=== PATIENT | male | born 1960 | race Caucasian/White ===

== ENCOUNTER 2018-04-12 06:38 | Inpatient (IN) | payer OTHER ==
[~2018-04-12] VITALS: Ht 177.8 cm; Wt 61.4 kg
[2018-04-12 07:54] LABS: BASOPHIL (%) 0.3 % (0-1); BASOPHIL COUNT 0.1 K/uL (0-0.1); EOSINOPHIL (%) 0.2 % (0-5); HEMATOCRIT 43.5 % (38.0-50.0); HEMOGLOBIN 15.5 G/DL (12.5-16.6); IMMATURE GRANULOCYTE (%) 0.5 % (0.0-0.7); LYMPHOCYTE COUNT 0.5 K/uL (1.0-2.8); MCH 33.5 PG (29.0-34.0); MCHC 35.6 G/DL (30.0-36.0); MONOCYTE (%) 7.9 % (3-12); MONOCYTE COUNT 1.2 K/uL (0-0.8); NEUTROPHIL (%) 88.1 % (45-76); NEUTROPHIL COUNT 13.6 K/uL (1.8-6.4); PLATELET COUNT 139 K/uL (156-360); RBC DIS.WIDTH-CV 13.2 % (11.8-14.6); RBC DIS.WIDTH-SD 45.5 % (39-53); RED BLOOD COUNT 4.63 M/uL (4.00-5.50); WHITE BLOOD COUNT 15.4 K/uL (4.1-10.2)
[2018-04-12 08:04] LABS: PTT 27.1 SEC (25-37)
[2018-04-12 08:15] LABS: ALBUMIN 4.5 G/DL (3.2-4.8); CHLORIDE 100 MEQ/L (99-109); POTASSIUM 4.1 MEQ/L (3.7-5.4); SODIUM 138 MEQ/L (136-147); TOTAL BILIRUBIN 1.2 MG/DL (0.0-1.0)
[2018-04-12 08:21] LABS: ALKALINE PHOSPHATASE 82 IU/L (3-129); ALT (GPT) 27 IU/L (3-49); AST (GOT) 44 IU/L (2-34); CREATININE 1.1 MG/DL (0.6-1.3); GFR ESTIMATE (CALCULATED) > 59 mL/min/ (58.99-99999); GLUCOSE 138 mg/dL (70-99); TOTAL PROTEIN 7.7 G/DL (6.4-8.3); UREA NITROGEN (BUN) 9 mg/dL (9-23)
[2018-04-12 08:25] LABS: TROP-I INTERPRETATION NEGATIVE; TROPONIN-I 0.19 ng/mL (0.0-0.30)
[2018-04-12] MEDS ORDERED: FLOVENT 11120 INHALA IH (10:15)
[2018-04-12] MEDS ORDERED: AFRIN,GENASAL D15 ML BOTH NARES (10:15)
[2018-04-12 10:55] LABS: LIPASE 2224 U/L (1.0-51.0)
[2018-04-12 12:28] LABS: MAGNESIUM 2.1 mg/dL (1.3-2.7)
[2018-04-12 13:28] LABS: TRIGLYCERIDES 48 MG/DL (Normal: <150)
[2018-04-12 14:25] VITALS: BP 174/91
[2018-04-12 16:32] LABS: TROP-I INTERPRETATION INDETERMINATE; TROPONIN-I 0.33 ng/mL (0.0-0.30)
[2018-04-12 17:41] LABS: INTER. NORMALIZED RATIO 1.1
[2018-04-12 17:44] LABS: PTT 33.5 SEC (25-37)
[2018-04-12 19:16] VITALS: BP 147/88
[2018-04-12 22:55] LABS: TROP-I INTERPRETATION NEGATIVE
[2018-04-12 23:15] VITALS: BP 150/86
[2018-04-13] VITALS (11 sets, daily range): BP systolic 73–180; BP diastolic 44–493
[2018-04-13 06:04] LABS: ALBUMIN 3.6 G/DL (3.2-4.8); ALKALINE PHOSPHATASE 53 IU/L (3-129); ALT (GPT) 19 IU/L (3-49); AST (GOT) 31 IU/L (2-34); CHLORIDE 105 MEQ/L (99-109); CREATININE 0.9 MG/DL (0.6-1.3); GFR ESTIMATE (CALCULATED) > 59 mL/min/ (58.99-99999); GLUCOSE 130 mg/dL (70-99); POTASSIUM 3.5 MEQ/L (3.7-5.4); SODIUM 139 MEQ/L (136-147); UREA NITROGEN (BUN) 10 mg/dL (9-23)
[2018-04-13 06:06] LABS: LIPASE 2220 U/L (1.0-51.0)
[2018-04-13 06:18] LABS: TOTAL BILIRUBIN 0.9 MG/DL (0.0-1.0); TOTAL PROTEIN 5.7 G/DL (6.4-8.3)
[2018-04-13 19:47] LABS: BASOPHIL (%) 0 % (0-1); EOSINOPHIL (%) 0.1 % (0-5); HEMATOCRIT 24.9 % (38.0-50.0); IMMATURE GRANULOCYTE (%) 0.7 % (0.0-0.7); LYMPHOCYTE (%) 6.4 % (15-42); LYMPHOCYTE COUNT 0.6 K/uL (1.0-2.8); MCH 32.9 PG (29.0-34.0); MCHC 33.3 G/DL (30.0-36.0); MONOCYTE (%) 9.8 % (3-12); NEUTROPHIL COUNT 8.1 K/uL (1.8-6.4); NRBC (%) 0.2 /100 WBC (0-0); RBC DIS.WIDTH-CV 13.5 % (11.8-14.6); RBC DIS.WIDTH-SD 48.5 % (39-53); WHITE BLOOD COUNT 9.8 K/uL (4.1-10.2)
[2018-04-13 19:48] LABS: HEMOGLOBIN 8.3 G/DL (12.5-16.6); MCV 98.8 FL (86-99); RED BLOOD COUNT 2.52 M/uL (4.00-5.50)
[2018-04-13 20:06] LABS: MAGNESIUM 1.4 mg/dl (1.3-2.7); PHOSPHORUS 1.9 mg/dL (2.5-4.9)
[2018-04-13 20:15] LABS: ABS NEUTROPHIL COUNT 9.3; ANISOCYTOSIS 1+; BAND NEUTROPHILS 1.7 % (0-8.0); EOSINOPHIL ABS CT 0; LYMPHOCYTES 4.4 % (15.0-45.0); MACROCYTES 1+; MONOCYTES 0.9 % (0-9.0); PLAT.SUFFICIENCY DECREASED
[2018-04-13 20:16] LABS: PLATELET COUNT 71 K/uL (156-360)
[2018-04-13 20:17] LABS: COMMENTS - BLOOD GASES C; DEVICE VENT; FI02 50 %; MECHANICAL RATE 20 resp/min; MODE AC; PCO2 35 mm Hg (35-45); PEEP 5 CM/H20; PO2 158 mm Hg (80-100); SITE LB; TIDAL VOLUME 450 ML; TOTAL RESP RATE 20 resp/min; pH 7.51 (7.35-7.45)
[2018-04-13 20:18] LABS: BASE EXCESS 4.6 mEq/L (-3 to +3); BICARBONATE 27.9 mEq/L (22-26); CARBOXY HGB 1.2 % (0-5); O2 SATURATION (CALCULATED) 96.8 % (95-99)
[2018-04-13 20:19] LABS: TROP-I INTERPRETATION NEGATIVE; TROPONIN-I 0.19 ng/mL (0.0-0.30)
[2018-04-13 20:24] LABS: ALBUMIN 3.1 G/DL (3.2-4.8); ALKALINE PHOSPHATASE 35 IU/L (3-129); ALT (GPT) 16 IU/L (3-49); AST (GOT) 30 IU/L (2-34); CHLORIDE 108 MEQ/L (99-109); CREATININE 0.8 MG/DL (0.6-1.3); GFR ESTIMATE (CALCULATED) > 59 mL/min/ (58.99-99999); GLUCOSE 98 mg/dL (70-99); HIGH-SENS C-REACTIVE PROTEIN 2.28 MG/DL (0.02-0.20); POTASSIUM 3.1 MEQ/L (3.7-5.4); SODIUM 139 MEQ/L (136-147); THYROTROPIN (TSH) 2.8 MIU/L (0.4-5.5); TOTAL BILIRUBIN 0.9 MG/DL (0.0-1.0); TOTAL PROTEIN 4.9 G/DL (6.4-8.3); UREA NITROGEN (BUN) 12 mg/dL (9-23)
[2018-04-14] VITALS (26 sets, daily range): BP systolic 91–153; BP diastolic 47–614
[2018-04-14 02:44] LABS: APPEARANCE CLEAR ((CLEAR)); BILIRUBIN NEGATIVE; BLOOD SMALL; COLOR YELLOW ((YELLOW)); GLUCOSE (STRIP) NEGATIVE; KETONES NEGATIVE; LEUKOCYTES NEGATIVE; NITRITE NEGATIVE; PROTEIN (STRIP) NEGATIVE; SPECIFIC GRAVITY 1.012 (1.000-1.030); UROBILINOGEN 0.2 MG/DL (0.2-1.0)
[2018-04-14 02:49] LABS: BACTERIA NONE SEEN /HPF; EPITHELIAL CELLS NONE SEEN /HPF; MUCUS TRACE /LPF; RED BLOOD CELLS 0-5 /HPF (0-5); WHITE BLOOD CELLS 0-5 /HPF (0-5)
[2018-04-14 06:52] LABS: ALBUMIN 2.7 G/DL (3.2-4.8); ALKALINE PHOSPHATASE 33 IU/L (3-129); ALT (GPT) 13 IU/L (3-49); AST (GOT) 22 IU/L (2-34); CHLORIDE 117 MEQ/L (99-109); CREATININE 0.7 MG/DL (0.6-1.3); GFR ESTIMATE (CALCULATED) > 59 mL/min/ (58.99-99999); POTASSIUM 2.8 MEQ/L (3.7-5.4); SODIUM 145 MEQ/L (136-147); TOTAL PROTEIN 4.3 G/DL (6.4-8.3); UREA NITROGEN (BUN) 8 mg/dL (9-23)
[2018-04-14 06:54] LABS: GLUCOSE 148 mg/dL (70-99); TOTAL BILIRUBIN 0.7 MG/DL (0.0-1.0)
[2018-04-14 06:55] LABS: BASOPHIL (%) 0.1 % (0-1); EOSINOPHIL (%) 0 % (0-5); HEMATOCRIT 20.4 % (38.0-50.0); HEMOGLOBIN 6.8 G/DL (12.5-16.6); IMMATURE GRANULOCYTE (%) 0.4 % (0.0-0.7); LYMPHOCYTE (%) 2.2 % (15-42); LYMPHOCYTE COUNT 0.2 K/uL (1.0-2.8); MCH 33.5 PG (29.0-34.0); MCHC 33.3 G/DL (30.0-36.0); MCV 100.5 FL (86-99); MONOCYTE (%) 4.8 % (3-12); MONOCYTE COUNT 0.5 K/uL (0-0.8); NEUTROPHIL (%) 92.5 % (45-76); NEUTROPHIL COUNT 8.8 K/uL (1.8-6.4); PLATELET COUNT 60 K/uL (156-360); RBC DIS.WIDTH-CV 13.5 % (11.8-14.6); RBC DIS.WIDTH-SD 50.1 % (39-53); RED BLOOD COUNT 2.03 M/uL (4.00-5.50); WHITE BLOOD COUNT 9.6 K/uL (4.1-10.2)
[2018-04-14 19:30] LABS: BASOPHIL (%) 0.1 % (0-1); EOSINOPHIL (%) 0 % (0-5); HEMATOCRIT 25.8 % (38.0-50.0); HEMOGLOBIN 8.6 G/DL (12.5-16.6); IMMATURE GRANULOCYTE (%) 0.4 % (0.0-0.7); LYMPHOCYTE COUNT 0.2 K/uL (1.0-2.8); MCH 31.6 PG (29.0-34.0); MCHC 33.3 G/DL (30.0-36.0); MCV 94.9 FL (86-99); MONOCYTE COUNT 0.5 K/uL (0-0.8); NEUTROPHIL (%) 93.5 % (45-76); NEUTROPHIL COUNT 10.6 K/uL (1.8-6.4); PLATELET COUNT 63 K/uL (156-360); RBC DIS.WIDTH-CV 16.4 % (11.8-14.6); RBC DIS.WIDTH-SD 57.5 % (39-53); RED BLOOD COUNT 2.72 M/uL (4.00-5.50); WHITE BLOOD COUNT 11.4 K/uL (4.1-10.2)
[2018-04-14 19:41] LABS: ALBUMIN 2.9 G/DL (3.2-4.8); ALKALINE PHOSPHATASE 38 IU/L (3-129); ALT (GPT) 15 IU/L (3-49); AST (GOT) 21 IU/L (2-34); CHLORIDE 113 MEQ/L (99-109); CREATININE 0.7 MG/DL (0.6-1.3); GFR ESTIMATE (CALCULATED) > 59 mL/min/ (58.99-99999); GLUCOSE 129 mg/dL (70-99); SODIUM 142 MEQ/L (136-147); TOTAL BILIRUBIN 0.7 MG/DL (0.0-1.0); TOTAL PROTEIN 4.7 G/DL (6.4-8.3); UREA NITROGEN (BUN) 7 mg/dL (9-23)
[2018-04-14 19:43] LABS: POTASSIUM 3.6 MEQ/L (3.7-5.4)
[2018-04-14 19:52] LABS: MAGNESIUM 1.7 mg/dl (1.3-2.7); PHOSPHORUS 2.7 mg/dL (2.5-4.9)
[2018-04-15] VITALS (16 sets, daily range): BP systolic 96–171; BP diastolic 65–861
[2018-04-15 05:40] LABS: BASOPHIL (%) 0.1 % (0-1); EOSINOPHIL (%) 0 % (0-5); HEMATOCRIT 25.8 % (38.0-50.0); HEMOGLOBIN 8.6 G/DL (12.5-16.6); IMMATURE GRANULOCYTE (%) 0.5 % (0.0-0.7); LYMPHOCYTE (%) 3.1 % (15-42); LYMPHOCYTE COUNT 0.3 K/uL (1.0-2.8); MCH 31.7 PG (29.0-34.0); MCHC 33.3 G/DL (30.0-36.0); MCV 95.2 FL (86-99); MONOCYTE (%) 5.8 % (3-12); MONOCYTE COUNT 0.6 K/uL (0-0.8); NEUTROPHIL (%) 90.5 % (45-76); RBC DIS.WIDTH-SD 56.1 % (39-53); RED BLOOD COUNT 2.71 M/uL (4.00-5.50)
[2018-04-15 05:58] LABS: ALBUMIN 2.8 G/DL (3.2-4.8); ALKALINE PHOSPHATASE 40 IU/L (3-129); ALT (GPT) 15 IU/L (3-49); AST (GOT) 22 IU/L (2-34); CHLORIDE 112 MEQ/L (99-109); CREATININE 0.8 MG/DL (0.6-1.3); GFR ESTIMATE (CALCULATED) > 59 mL/min/ (58.99-99999); GLUCOSE 166 mg/dL (70-99); LIPASE 141 U/L (1.0-51.0); POTASSIUM 3.5 MEQ/L (3.7-5.4); SODIUM 140 MEQ/L (136-147); TOTAL BILIRUBIN 0.6 MG/DL (0.0-1.0); TOTAL PROTEIN 4.8 G/DL (6.4-8.3); UREA NITROGEN (BUN) 7 mg/dL (9-23)
[2018-04-15 06:14] LABS: IMM.PLATELET FRACTION 14.7 (1-7); PLAT.SUFFICIENCY DECREASED
[2018-04-15 06:16] LABS: PLATELET COUNT 37 K/uL (156-360)
[2018-04-15 09:04] LABS: COMMENTS - BLOOD GASES A+C+; DEVICE 980 PB; FI02 30 %; MODE SPONT; O2 SATURATION (CALCULATED) 96.1 % (95-99); PCO2 33 mm Hg (35-45); PEEP 5 CM/H20; PO2 117 mm Hg (80-100); PRES. SUPPORT 5 CM/H2O; SITE LR; TOTAL RESP RATE 18 resp/min; pH 7.44 (7.35-7.45)
[2018-04-15 09:05] LABS: BASE EXCESS -1.4 mEq/L (-3 to +3); BICARBONATE 22.4 mEq/L (22-26); CARBOXY HGB 1.1 % (0-5); METHEMOGLOBIN 1.4 % (0-1.5)
[2018-04-16] VITALS (8 sets, daily range): BP systolic 134–195; BP diastolic 68–98
[2018-04-16 05:09] LABS: BASOPHIL (%) 0.1 % (0-1); EOSINOPHIL (%) 0 % (0-5); HEMATOCRIT 24.1 % (38.0-50.0); HEMOGLOBIN 8.1 G/DL (12.5-16.6); LYMPHOCYTE (%) 1.8 % (15-42); LYMPHOCYTE COUNT 0.2 K/uL (1.0-2.8); MCHC 33.6 G/DL (30.0-36.0); MCV 95.3 FL (86-99); MONOCYTE (%) 4.5 % (3-12); MONOCYTE COUNT 0.5 K/uL (0-0.8); NEUTROPHIL (%) 92.6 % (45-76); RBC DIS.WIDTH-CV 15.6 % (11.8-14.6); RBC DIS.WIDTH-SD 54.9 % (39-53); RED BLOOD COUNT 2.53 M/uL (4.00-5.50); WHITE BLOOD COUNT 11.9 K/uL (4.1-10.2)
[2018-04-16 05:58] LABS: PLATELET COUNT 79 K/uL (156-360)
[2018-04-16 06:06] LABS: ALBUMIN 2.7 G/DL (3.2-4.8); ALKALINE PHOSPHATASE 38 IU/L (3-129); ALT (GPT) 20 IU/L (3-49); AST (GOT) 28 IU/L (2-34); CHLORIDE 113 MEQ/L (99-109); CREATININE 0.7 MG/DL (0.6-1.3); GFR ESTIMATE (CALCULATED) > 59 mL/min/ (58.99-99999); GLUCOSE 136 mg/dL (70-99); LIPASE 199 U/L (1.0-51.0); POTASSIUM 3.2 MEQ/L (3.7-5.4); SODIUM 143 MEQ/L (136-147); TOTAL BILIRUBIN 0.7 MG/DL (0.0-1.0); TOTAL PROTEIN 4.6 G/DL (6.4-8.3); UREA NITROGEN (BUN) 9 mg/dL (9-23)
[2018-04-17 03:54] VITALS: BP 166/79
[2018-04-17 06:38] LABS: IRON 61 MCG/DL (35-150); TRANSFERRIN (TIBC) 164.4 mg/dL (215-380); TRANSFERRIN SATUR. 37 % (20-55)
[2018-04-17 07:51] LABS: FERRITIN 461 NG/ML (22-322)
[2018-04-17 07:56] LABS: FOLIC ACID (FOLATE) 11.8 NG/ML (5.0-22.0)
== END 2018-04-17 07:30 | disposition left against medical advice (07) | DRG 438 ==
LOC: EME 06:38 → 4EAST 10:51 → EDOF 10:51 → 4WEST 10:51 → ENRESERV 10:54 → CANRESERV 10:54 → ENRESERV 10:59 → 4EAST 14:24 → ENRESERV 04-13 18:08 → 4WEST 04-13 18:09 → ENRESERV 04-15 16:04 → 4EAST 04-15 16:51 → ENRESERV 04-16 11:02 → 5SOUTH 04-16 13:31
PROVIDERS: Emergency Medicine; Hospitalist; Internal Medicine; Internal Medicine Gastroenterology; Specialist
PROC: 0BH17EZ Insertion of Endotracheal Airway into Trachea, Via Natural or Artificial Opening (ICD-10-PCS; principal; 2018-04-13)
PROC: 02H633Z Insertion of Infusion Device into Right Atrium, Percutaneous Approach (ICD-10-PCS; principal; 2018-04-13)
PROC: 5A1945Z Respiratory Ventilation, 24-96 Consecutive Hours (ICD-10-PCS; principal; 2018-04-13)
DX: K85.20 Alcohol induced acute pancreatitis without necrosis or infection (principal); F10.231 Alcohol dependence with withdrawal delirium; F17.200 Nicotine dependence, unspecified, uncomplicated; I10 Essential (primary) hypertension; J44.1 Chronic obstructive pulmonary disease with (acute) exacerbation; R63.0 Anorexia; R63.4 Abnormal weight loss; F12.90 Cannabis use, unspecified, uncomplicated; R74.8 Abnormal levels of other serum enzymes; Z68.1 Body mass index [BMI] 19.9 or less, adult; D64.9 Anemia, unspecified; J96.90 Respiratory failure, unspecified, unspecified whether with hypoxia or hypercapnia; K86.1 Other chronic pancreatitis; K74.60 Unspecified cirrhosis of liver; Z79.899 Other long term (current) drug therapy; R45.1 Restlessness and agitation; M51.26 Other intervertebral disc displacement, lumbar region; E87.6 Hypokalemia; E46 Unspecified protein-calorie malnutrition; I47.1 Supraventricular tachycardia; Z78.1 Physical restraint status; Z53.21 Procedure and treatment not carried out due to patient leaving prior to being seen by health care provider
CPT/HCPCS: 36600; 71045; 71275; 74177; 80053; 80202; 81003; 82533 91; 82550; 82607; 82728; 82746; 82803; 83540; 83605; 83690; 83735; 84100; 84145 90; 84443; 84466; 84478; 84484; 85025; 85025 91; 85027; 85610; 85730; 86141; 86850; 86900; 86901; 86920; 87040; 87070; 87086; 87205; 87641; 93005; 93306; 94002; 94003; 94640; 94640 76; 94760; 99202; 99281; 99285; C1751; J0360; J0456; J1630; J1644; J1650; J1885; J2060; J2250; J2543; J2920; J3010; J3370; J3411; J3475; J3480; J7030; J7042; J7050; J7120; P9016; S0028